=== PATIENT | female | born 1975 | race Asian ===

== ENCOUNTER 2018-10-31 18:18 | Emergency (ER) | payer OTHER ==
[~2018-10-31] VITALS: Ht 157.5 cm; Wt 58.1 kg
[2018-10-31 18:33] VITALS: BP 137/75; Ht 157.5 cm; Wt 58.1 kg
== END 2018-10-31 20:01 | disposition home or self-care (01) ==
LOC: ED 18:18
DX: L25.9 Unspecified contact dermatitis, unspecified cause (principal); Z85.3 Personal history of malignant neoplasm of breast; Z98.890 Other specified postprocedural states